=== PATIENT | male | born 2000 | race Caucasian/White ===

== ENCOUNTER 2021-03-08 11:41 | Outpatient (CLI) | payer OTHER, SELFPAY ==
--- NOTE | ~2021-03-08 | XR_ITS ---
EXAMINATION: XR shoulder LT min 2V DATE: 03/08/2021 12:11 INDICATION: Left shoulder pain TECHNIQUE: AP internally and externally rotated, AP oblique externally rotated and axillary views of the left shoulder were obtained. COMPARISON: None FINDINGS: Normal alignment. No fracture. Glenohumeral joint is normal. Acromioclavicular joint is normal. Bone island at the left humeral head. Visualized portion of the lungs are clear. Cardiomediastinal silhou ette is normal. Soft tissues are unremarkable. IMPRESSION: Negative left shoulder radiographs. Reviewed, dictated and finalized at location A.
== END 2021-03-08 11:42 | disposition home or self-care (01) ==
LOC: ANHIMG 11:47
PROVIDERS: PCP Nurse Practitioner Family; Visit Provider Nurse Practitioner Family
DX: M25.512 Pain in left shoulder (principal)
CPT/HCPCS: 73030

== ENCOUNTER 2021-04-04 13:16 | Outpatient (CLI) | payer OTHER, SELFPAY ==
--- NOTE | ~2021-04-04 | XR_ITS ---
EXAMINATION: XR_RIBSBI_CR INDICATION: Bilateral rib pain TECHNIQUE: Three views of the bilateral ribs are obtained. COMPARISON: None available FINDINGS: The lungs are free of acute opacities. There is no pleural effusion or pneumothorax. The ca rdiomediastinal silhouette is normal. No displaced rib fracture is identified. IMPRESSION: 1. No acute cardiopulmonary abnormality or evidence of displaced rib fracture. Reviewed, dictated and finalized at location A.
== END 2021-04-04 13:17 | disposition home or self-care (01) ==
PROVIDERS: PCP Nurse Practitioner Family; Visit Provider Nurse Practitioner Family
DX: R07.81 Pleurodynia (principal)
CPT/HCPCS: 71110

== ENCOUNTER 2021-11-05 08:27 | Outpatient (CLI) | payer OTHER, SELFPAY ==
--- NOTE | ~2021-11-05 | US_ITS ---
EXAMINATION: US abdomen complete DATE: 11/05/2021 11:24 INDICATION: Abdominal pain. TECHNIQUE: Multiple grayscale and Doppler ultrasound images of the abdomen were obtained. COMPARISON: None FINDINGS: The visualized portions of the head, body, and tail of the pancreas are normal. The liver i s normal without focal lesion. There is normal flow in main portal vein. The gallbladder is normal in size. No gallstones or gallbladder wall thickening. There was no sonographic Betts sign. The common duct is normal and measures 3 mm. The kidneys are normal in size. The spleen is normal in size. Abdo carie aorta is normal in caliber. Inferior vena cava is normal. IMPRESSION: 1. Normal complete abdomen ultrasound. Reviewed, dictated and finalized at location B.
== END 2021-11-05 08:28 | disposition home or self-care (01) ==
PROVIDERS: PCP Nurse Practitioner Family; Visit Provider Nurse Practitioner Family
DX: R10.9 Unspecified abdominal pain (principal)
CPT/HCPCS: 76700

== ENCOUNTER 2022-06-06 13:46 | Outpatient (CLI) | payer OTHER, SELFPAY ==
--- NOTE | ~2022-06-06 | CT_ITS ---
EXAMINATION: CT soft tissue neck w con DATE: 06/06/2022 14:05 INDICATION: Lesion of larynx. Scar conditions and fibrosis of skin. TECHNIQUE: Computed tomography (CT) of the neck was performed with 75 mL Omnipaque-350 intravenous co ntrast. Automated exposure control and iterative reconstruction technique were employed. The dose-amber gth product was 418.17 mGy-cm. COMPARISON: None FINDINGS: There are no pathologically enlarged lymph nodes. The cervical carotid arteries are normal. The pharynx and larynx are normal. There is a small posterior tracheal diverticulum at the thoracic inlet. The paranasal sinuses are clear. The mastoid air cells are normal. IMPRESSION: 1. No evidence of malignancy. Reviewed, dictated and finalized at location A. [employer]
== END 2022-06-06 13:47 | disposition home or self-care (01) ==
PROVIDERS: PCP Nurse Practitioner Family; Visit Provider Otolaryngology
DX: L90.5 Scar conditions and fibrosis of skin (principal)
CPT/HCPCS: 70491; Q9967

== ENCOUNTER 2023-07-16 11:56 | Emergency (ER) | payer OTHER, SELFPAY ==
[2023-07-16 12:01] VITALS: BP 145/82; PULSE 104; RESP 16; TEMP 37.1; O2SAT 100
--- NOTE | 2023-07-16 12:14 | ED.URI ---
HPI - URI/Sore Throat General Chief Complaint: Upper Respiratory Infection Stated Complaint: BODY ACHES/HEADACHE/NAUSEA/DIZZY/COUGH/SOB Time Seen by Provider: 07/16/23 12:14 Source: patient Mode of arrival: ambulatory Limitations: no limitations History of Present Illness HPI Narrative: 22-year-old male presents with complaint of fever, body aches, headache, nausea, cough and congestion for 4 days. Taking xlsu-off-pkiohry DayQuil NyQuil to treat symptoms. Patient reports COVID exposure from his father. States that he needs work note. No chest pain or shortness of breath. All systems reviewed and negative except as noted above. Related Data Home Medications Medication Instructions Recorded Confirmed No Home Medications 05/01/22 07/16/23 Allergies Allergy/AdvReac Type Severity Reaction Status Date / Time No Known Allergies Allergy Verified 07/16/23 12:17 Review of Systems Review of Systems: CONSTITUTIONAL: Reports fever, chills, or sweats. EYES: Denies visual changes, redness, or discharge. ENT: Reports rhinorrhea, congestion, sore throat. Denies otalgia. CARDIOVASCULAR: Denies chest pain, palpitations, or edema. RESPIRATORY: Reports cough. Denies dyspnea. GASTROINTESTINAL: Denies abdominal pain, nausea, vomiting, or diarrhea. GENITOURINARY: Denies dysuria or hematuria. SKIN: Denies rash or itching. MUSCULOSKELETAL: Denies back pain, joint pain, or myalgia. NEUROLOGIC: Reports headache. Denies numbness, or weakness. PSYCHIATRIC: Denies anxiety or depression. All other systems reviewed are negative, except as documented in HPI. PMFSH Social History Social History Smoking status: Never smoker Comments At time of signature, agree with nursing past medical, surgical, social and family history. There is no relevant family history pertinent to the presenting complaint. Exam Narrative: GENERAL: This is a well-nourished, well-developed patient, patient ill-appearing but in no acute distress. HEAD: normocephalic, atraumatic. EYES: PERRL. Sclera clear/white. Vision is grossly intact. EARS: External ears normal, auditory canals clear and without drainage, TMs normal without perforation. Hearing grossly intact. NOSE: External nose normal with mild congestion with clear nasal drainage THROAT: Mucous membranes moist, mild erythema without swelling or exudates. NECK: Neck supple, non-tender without lymphadenopathy, masses or thyromegaly. CARDIOVASCULAR: Regular rate and rhythm without murmurs, gallops, or rubs. RESPIRATORY: Clear to auscultation. Breath sounds equal bilaterally. No wheezes, rales, or rhonchi. SKIN: warm, Dry, intact with no suspicious lesions or rash, good texture and turgor. NEURO: awake, alert, and oriented to person, place and time. There were no obvious focal neurologic abnormalities. EXTREMITIES: No joint tenderness, effusion, or edema noted. Course Course Level of Care: Express Care Visit Vital Signs Vital signs: Vital Signs Temperature 37.1 C 07/16/23 12:01 Pulse Rate 104 H 07/16/23 12:01 Respiratory Rate 16 07/16/23 12:01 Blood Pressure 145/82 H 07/16/23 12:01 Pulse Oximetry 100 07/16/23 12:01 Temperature 37.1 C 07/16/23 12:01 Pulse Rate 104 H 07/16/23 12:01 Respiratory Rate 16 07/16/23 12:01 Blood Pressure 145/82 H 07/16/23 12:01 Pulse Oximetry 100 07/16/23 12:01 Reviewed MDM - URI/Sore Throat MDM Narrative Medical decision making narrative: Patient is aware of diagnosis, understands and agrees to treatment plan. Anticipatory guidance given. Patient agrees to follow-up as directed and is aware of reasons to seek care at the emergency department. Portions of this record may have been created with voice recognition software Differential Diagnosis Differential diagnosis: Likely influenza Discharge Plan Discharge Clinical Impression: Influenza A Patient Disposition
== END 2023-07-16 12:25 | disposition home or self-care (01) ==
PROVIDERS: Emergency Provider Nurse Practitioner Family; PCP Nurse Practitioner Family
DX: J10.1 Influenza due to other identified influenza virus with other respiratory manifestations (principal); Z20.822 Contact with and (suspected) exposure to COVID-19
CPT/HCPCS: 87081; 87426; 87804; 87880; 99213; G0463

== ENCOUNTER 2023-10-21 08:37 | Emergency (ER) | payer OTHER, SELFPAY ==
[2023-10-21 08:52] VITALS: BP 137/84; PULSE 99; RESP 16; TEMP 37.5; O2SAT 100
--- NOTE | 2023-10-21 08:57 | ED.URI ---
HPI - URI/Sore Throat General Chief Complaint: Upper Respiratory Infection Stated Complaint: SORE THROAT/HEADACHE/NAUSEA/CONGESTION/COUGH Time Seen by Provider: 10/21/23 09:14 Source: patient and RN notes reviewed Mode of arrival: ambulatory Limitations: no limitations History of Present Illness HPI Narrative: 22-year-old male presents with concern for body aches, cough, nasal congestion, headache, sore throat for about 5 days. He has been taking TheraFlu. MD elicited complaint: nasal congestion Related Data Allergies Allergy/AdvReac Type Severity Reaction Status Date / Time No Known Allergies Allergy Verified 10/21/23 08:48 Review of Systems Review of Systems: CONSTITUTIONAL: Reports malaise, chills, sweats, denies fever. EYES: Denies visual changes, redness, or discharge. ENT: Reports rhinorrhea, congestion, sinus pain, and sore throat. CARDIOVASCULAR: Denies chest pain, palpitations, or edema. RESPIRATORY: Reports cough. Denies dyspnea. GASTROINTESTINAL: Denies abdominal pain, nausea, vomiting, diarrhea SKIN: Denies rash or itching. MUSCULOSKELETAL: Reports myalgia. NEUROLOGIC: Reports headache. All systems reviewed & are unremarkable except as noted in HPI and below PMFSH Social History Social History Smoking status: Never smoker Comments At time of signature, agree with nursing past medical, surgical, social and family history. There is no relevant family history pertinent to the presenting complaint Exam Narrative: GENERAL: Well-appearing, well-nourished, and in no acute distress. HEAD: Normocephalic EYES: PERRLA, conjunctivae clear ENT: Nares clear. Mucous membranes moist. TM pearly parker with dull light reflex bilaterally; no tragal tenderness. Oropharynx not erythematous without lesions. Tonsils not enlarged and without exudate, no drooling, no hoarseness, no trismus, uvula midline. NECK: Supple. No lymphadenopathy CHEST: Clear to auscultation, breath sounds equal. No wheezing, rhonchi, rales, or stridor. No respiratory distress, speaks in full sentences. HEART: Regular rate and rhythm. No murmur heard. SKIN: Warm, dry, no rash. NEURO: Alert and oriented x3. PSYCH: Normal mood and affect Course Course Emergency Course: Patient is aware of diagnosis, understands and agrees to treatment plan. Anticipatory guidance given. Patient agrees to follow-up as directed and is aware of reasons to seek care at the emergency department. Portions of this record may have been created with voice recognition software Level of Care: Express Care Visit Vital Signs Vital signs: Vital Signs Temperature 99.5 F 10/21/23 08:52 Pulse Rate 99 10/21/23 08:52 Respiratory Rate 16 10/21/23 08:52 Blood Pressure 137/84 10/21/23 08:52 Pulse Oximetry 100 10/21/23 08:52 Temperature 99.5 F 10/21/23 08:52 Pulse Rate 99 10/21/23 08:52 Respiratory Rate 16 10/21/23 08:52 Blood Pressure 137/84 10/21/23 08:52 Pulse Oximetry 100 10/21/23 08:52 Reviewed. MDM - URI/Sore Throat MDM Narrative Medical decision making narrative: Differential diagnosis considered: Rico virus, strep pharyngitis, allergic rhinitis, upper respiratory tract infection, sinusitis, rhinosinusitis, nasopharyngitis. viral pharyngitis, otitis media, otitis externa, pneumonia, bronchitis, viral cough syndrome, viral syndrome, and influenza. Exam findings show no acute concerns or changes; patient is non-toxic appearing and is in no distress. Patient is appropriate for outpatient treatment and follow-up. Lab Data Attestation: I reviewed the patient's lab results. Critical Care Time Critical Care Time Critical Care Time: No Discharge Plan Discharge Clinical Impression: Influenza B Patient Disposition: Home, Self-Care Condition: Stable Instructions: Influenza (ED) Additional Instructions: -Take strict precautions to prevent the spread of your virus.
== END 2023-10-21 09:15 | disposition home or self-care (01) ==
PROVIDERS: Emergency Provider Nurse Practitioner; PCP Nurse Practitioner Family
DX: J10.1 Influenza due to other identified influenza virus with other respiratory manifestations (principal); Z20.822 Contact with and (suspected) exposure to COVID-19
CPT/HCPCS: 87081; 87426; 87804; 87880; 99213; G0463